=== PATIENT | female | born 1975 | race Caucasian/White ===

== ENCOUNTER → 2016-12-05 | Outpatient (CLI) | payer BC ==
[~2016-12-05] MED LIST: ATOR-24 PO; B-COTAB18 PO; BUTA1CAP17 PO; CHOL1TAB46 PO; COEN100C7 PO; LEVO75TA5 PO; ONDA4TAB65 PO; OXYC-57 PO; PROM25TA9 PO; RIZA10TA19 PO; SYN25 PO; TPM/50 PO
== END | disposition home or self-care (01) ==
LOC: C.PAPS 13:47
PROVIDERS: ATTEND Obstetrics & Gynecology
DX: Z01.419 Encounter for gynecological examination (general) (routine) without abnormal findings (principal)

== ENCOUNTER 2017-07-07 06:03 | Observation (INO) | payer BC ==
[2017-06-11 09:25] VITALS: BMI 33.0
[2017-06-18 09:33] LABS: BASO % 0.2 %; BASO ABS # 0.02 K/uL (0-0.2); COMPLETE YES; EOS % 2.4 %; HEMATOCRIT 41.1 % (37-47); IG% 0.2 %; LYMPH % 35.7 %; LYMPH ABS # 3.27 K/uL (1.2-3.4); MEAN CORPUSCULAR HEMOGLOBIN 28.1 pg (25-34); MEAN CORPUSCULAR HGB CONC 34.3 g/dl (32-36); MEAN PLATELET VOLUME 9.2 fL (7.4-10.4); NEUT % 54.5 %; PLATELET COUNT 386 K/uL (130-400); RED BLOOD COUNT 5.01 M/uL (4.2-5.4); WHITE BLOOD COUNT 9.17 K/uL (4.8-10.8)
[2017-06-18 09:54] LABS: BUN/CREATININE RATIO 19.2 (10-20); CALCIUM 8.8 mg/dl (8.5-10.1); CREATININE 0.96 mg/dl (0.60-1.20); POTASSIUM 4.1 mmol/L (3.5-5.1)
[2017-06-18 10:05] LABS: CHOLESTEROL/HDL RATIO 4.2; THYROID STIMULATING HORMONE 2.43 uIu/ml (0.300-4.500)
[2017-07-07] VITALS (7 sets, daily range): BP systolic 104–165; BP diastolic 62–90; PULSE 64–83; TEMP 36.5–37.3; O2SAT 94–97; Ht 149.9 cm; Wt 75.0 kg
[~2017-07-07] VITALS: Ht 149.9 cm; Wt 75.0 kg
[~2017-07-07 06:03] MED LIST changes: +CLINDAMYCIN 600 MG/54 ML D5W 50 ML IV SCH; +LACTATED RINGER'S 1000ML 1,000 ML IV SCH; -SYN25 PO
[2017-07-07] MEDS ORDERED: EpHEDrine SULFATE INJ 50 MG/ML AMP IV PRN (06:30)
[2017-07-07] MEDS ORDERED: FENTANYL CITRATE INJ 50 MCG/1 ML 2 ML VIAL IV PRN (06:30)
[2017-07-07] MEDS ORDERED: PROMETHAZINE HCL INJ 12.5 MG in SODIUM CHLORIDE 0.9% 50ML 50 ML IV PRN (06:30)
[2017-07-07] MEDS ORDERED: ATROPINE SULFATE 0.1 MG/ML 5ML SYR IV PRN (06:30)
[2017-07-07] MEDS ORDERED: HYDROmorphone INJ 1 MG/ML SYR IV PRN (06:30)
[2017-07-07] MEDS ORDERED: ONDANSETRON INJ 2 MG/ML 2 ML VIAL IV PRN (06:30)
[2017-07-07] MEDS ORDERED: MIDAZOLAM HCL 1 MG/ML 2ML VIAL ONE (06:50)
[2017-07-07] MEDS ORDERED: FENTANYL CITRATE INJ 50 MCG/1 ML 2 ML VIAL ONE (06:51)
[2017-07-07] MEDS ORDERED: BUPIVACAINE 0.5 % 5 MG/1 ML MPF 30ML VIAL ONE (07:02)
[2017-07-07 07:04] LABS: PREG INTERNAL NEGATIVE QC NEG CLEAR BACKGROUND; PREG INTERNAL POSITIVE QC POS CONTROL LINE
[2017-07-07] MEDS: GENTAMICIN INJ 80 MG in DEXTROSE 5% 100ML 100 ML IV SCH ×2 (07:13→09:13)
--- NOTE | 2017-07-07 07:19 | History & Physical Bridge Note ---
H&P Re-Evaluation Bridge Note: I have examined the patient, reviewed the History & Physical and in the interval since the performance of the History & Physical I have noted the following changes of clinical significance: No changes noted
[2017-07-07] MEDS ORDERED: SCOPOLAMINE 1.5 MG TDSY TD ONE (07:26)
[2017-07-07] MEDS ORDERED: HYDROmorphone INJ 2 MG/ML SYR/VIAL ONE (07:52)
[2017-07-07] MEDS ORDERED: ROCURONIUM BROMIDE 10 MG/ML 5 ML VIAL ONE (08:16)
[2017-07-07] MEDS ORDERED: GLYCOPYRROLATE INJ 0.2 MG/ML VIAL ONE (08:16)
[2017-07-07] MEDS ORDERED: PROPOFOL IV EMULSION 10 MG/ML 20 ML VIAL IV ONE (08:16)
[2017-07-07] MEDS ORDERED: NEOSTIGMINE METHYLSULFATE 5 MG/5 ML SYR ONE (08:16)
[2017-07-07] MEDS ORDERED: LIDOCAINE HCL 2% 2 ML VIAL (20MG/ML) ONE (08:16)
[2017-07-07] MEDS ORDERED: ONDANSETRON INJ 2 MG/ML 2 ML VIAL ONE (08:16)
[2017-07-07] MEDS ORDERED: DEXAMETHASONE SOD INJ 4 MG/ML VIAL ONE (08:16)
[2017-07-07] MEDS ORDERED: METOCLOPRAMIDE HCL INJ 5 MG/ML 2 ML VIAL ONE (08:16)
[2017-07-07] MEDS ORDERED: TISSEEL FIBRIN SEALANT 4ML TOP ONE (08:44)
[2017-07-07] MEDS ORDERED: OXYC-57 PO (09:29)
[2017-07-07] MEDS ORDERED: SIMETHICONE 80 MG CHEW PO PRN (09:30)
[2017-07-07] MEDS ORDERED: ACETAMINOPHEN 325 MG TAB PO PRN (09:30)
[2017-07-07] MEDS ORDERED: IBUPROFEN 600 MG TAB PO PRN (09:30)
[2017-07-07] MEDS ORDERED: KETOROLAC TROMETHAMINE 30 MG/ML VIAL IV. PRN (09:30)
[2017-07-07] MEDS ORDERED: OXYCODONE/ACETAMINOPHEN 5-325 TAB PO PRN ×2 (09:30)
[2017-07-07] MEDS ORDERED: MEPERIDINE HCL 50 MG/ML CARP IV PRN ×2 (09:30)
--- NOTE | 2017-07-07 09:30 | Discharge Instructions ---
Discharge Instructions Date of Service Jul 07, 2017. Admission Reason for Admission: Dysmenorrhea;Z01.818;E78.5, I10, E03.9 Discharge Discharge Diagnosis / Problem: s/p total laproscopic hysterectomy and removal of the tubes Discharge Goals Goal(s): Routine recovery after surgery Activity Recommendations Activity Limitations: per Instructions/Follow-up section . Instructions / Follow-Up Instructions / Follow-Up POST OPERATIVE: BOWEL FUNCTION/MEDICATIONS: 1. Constipation pain and discomfort are the most common complaints 5-7 days after surgery. Points 2-6 address the things that can help. 2. Chewing gum can help stimulate the gut and help improve digestion and motility. 3. Milk of Magnesia 1-2 times per day until return of bowel function. 4. Colace is a stool softener that helps. Taking this 2-3 times per day until bowel function returns to normal is highly recommended. 5. Dulcolax is a laxative that may be used if several days have passed without a bowel movement. Alternatively Miralax may be used daily instead. 6. Drink plenty of fluids as this will also reduce constipation. 7. Narcotic pain medications will be prescribed by your physician. They are safe to use and we encourage you to use them. If you are not allergic, ibuprofen will also be prescribed. Many patients will be able to transition off of the narcotic medications to ibuprofen by postoperative day 3. ACTIVITY RECOMMENDATIONS: 1. Get plenty of rest and listen to your body. If you are tired, take a nap. 2. You may shower, but do not take a tub bath until you see your doctor at the 2 week post operative visit. 3. Absolutely NO intercourse and nothing in the vagina until you are examined by your doctor at the 6 week visit. At that visit it will be determined when such activities can be resumed. This can range from 6-12 weeks after your surgery depending on healing time. 4. The main physical activity in the first week should be walking. By the second week you can slowly increase activity. There are no limits on walking up and down stairs. 5. Do not lift more than 5-10 lbs for 4 weeks. Remember the "one-handed rule", i.e. if you can lift something with only one hand it's likely okay. 6. Minimize anode adjuster like vacuuming and exercising for 4 weeks. "Overdoing it" can lead to incisions not healing, pain and vaginal bleeding , so again, listen to your body. 7. Driving can be resumed when you feel able. Do not drive within 24 hours of taking a narcotic medication. EXPECTATIONS: 1. Vaginal spotting, bleeding and discharge are common after surgery. There may even be an odor to the discharge which is often related to sutures used in the vagina. If you experience heavy vaginal bleeding, call the office number day or night [phone]. 2. Bladder discomfort is common after surgery from the catheter. This usually resolves in 1-2 weeks. 3. By the end of the 3rd or 4th week you should be feeling much better. It may take up to 6 weeks for your energy levels to return to normal. 4. Narcotic medications have side effects such as: dizziness, headache, nausea and/or vomiting. If you suspect your pain medication is causing problems, call our office and we may be able to prescribe an alternate medication. 5. The skin incisions are often covered with a liquid bandage. This will gradually peel off over time. CALL THE OFFICE IF YOU HAVE ANY OF THE FOLLOWIN. Temperature of 101 degrees or higher. 2. Severe abdominal or pelvic pain not relieved by pain medication. 3. Persistent nausea or vomiting. 4. Increased pain with urination or difficulty urinating. 5. Bright red bleeding that soaks more than 1 pad per hour. CONTACT PHONE NUMBERS: Main Office: [phone] Surgical Nurse: [phone] extension [phone] FOLLOW-UP: Post-Operative Appointments: * Individual instructions will have been given about the timing of your first examination, but this is usually at the end of the second week home. * You will need to call the office at soon after discharge to make the appointment for your post-op check-up if it has not already been scheduled. * Additional information regarding activity, sexual intercourse and when to return to work will be given at this appointment. WE WISH YOU A SPEEDY RECOVERY! Current Hospital Diet Patient's current hospital diet: Discharge Diet Recommended Diet: Regular Diet Procedures Procedures Performed: Robotic assisted total laparoscopic hysterectomy with bilateral salpingectomies and cystoscopy Pending Studies Studies pending at discharge: no Laboratory Results Lipid Panel Test 06/18/17 08:11 Range/Units Triglycerides Level 212 H 0-150 mg/dl Cholesterol Level 207 H 0-200 mg/dl HDL Cholesterol 49 mg/dl Cholesterol/HDL Ratio 4.2 LDL Cholesterol, Calculated 116 mg/dl Medical Emergencies . Who to Call and When: Medical Emergencies: If at any time you feel your situation is an emergency, please call 911 immediately. . Non-Emergent Contact Non-Emergency issues call your: Community Recreation Coordinator . . "Provider Documentation" section prepared by Ana Holden. . VTE Core Measure Inpt VTE Proph given/why not?: Treatment not indicated [place] Drug Monitoring Program Search Results: patient reviewed within database, no issues identified
--- NOTE | 2017-07-07 09:32 | [facility] Post Operative Brief Note ---
Immediate Operative Summary Operative Date Jul 07, 2017. Pre-Operative Diagnosis Dysmenorrhea Failed endometrial ablation Post-Operative Diagnosis same Procedure(s) Performed Robotic assisted total laparoscopic hysterectomy with bilateral salpingectomies and cystoscopy Surgeon Dr. Ana Holden MD Dealmaker Surgeon(s) None Estimated Blood Loss 50ml Findings uterus normal size and shape, nl tubes and ovaries noted. Fluids (cc crystalloids) 1000cc Specimens A. Uterus, cervix, and bilateral fallopian tubes Drains bourne Anesthesia gett Complication(s) None Disposition Recovery Room / PACU
--- NOTE | 2017-07-07 09:34 | Medical Student: [facility] ---
Operative Report Operative Date Jul 07, 2017. Pre-Operative Diagnosis 42 yr with Dysmenorrhea with failed endometrial ablation Post-Operative Diagnosis same as pre-op Procedure(s) Performed Total laproscopic hysterectomy with bilateral salpenjectomy and cystoscopy Surgeon Dr. Holden Gas Well Drilling Manager Surgeon(s) n/a Estimated Blood Loss 50mL Findings normal gross anatomy of uterus, fallopian tubes x2, ovaries x2, small anterior mid-abdominal omental adhesion Specimens non-gravid uterus with cervix, 2 fallopian tube segments Drains Samson Anesthesia General tracheal Complication(s) None Disposition Recovery Room / PACU
[2017-07-07] MEDS ORDERED: LACTATED RINGER'S 1000ML 1,000 ML IV SCH (10:00)
--- NOTE | 2017-07-07 10:02 | Anesthesiology Progress Note ---
Anesthesia Post Op Note Date & Time Jul 07, 2017 at 10:01 Vital Signs Pain Intensity: 0 Vital Signs Past 12 Hours Date Time Temp Pulse Resp B/P (MAP) Pulse Ox O2 Delivery O2 Flow Rate FiO2 07/07/17 09:55 56 16 110/69 98 Nasal Cannula 2 07/07/17 09:45 61 16 106/65 98 Nasal Cannula 2 07/07/17 09:35 63 16 90/63 99 Oxymask 10 07/07/17 09:29 36.8 69 16 110/58 96 Oxymask 10 07/07/17 06:48 36.8 79 16 165/90 (115) 97 Room Air Notes Mental Status: alert / awake / arousable, participated in evaluation Pt Amnestic to Procedure: Yes Nausea / Vomiting: adequately controlled Pain: adequately controlled Airway Patency, RR, SpO2: stable & adequate BP & HR: stable & adequate Hydration State: stable & adequate Anesthetic Complications: no major complications apparent Doing well. No n/v. Migraines gone. Ready for d/c from PACU.
[2017-07-07] MEDS ORDERED: IV FLUIDS COMPLETED PRN (11:00)
--- NOTE | 2017-07-07 11:43 | Progress Note ---
Progress Note Date of Service Jul 07, 2017. Progress Note Patient notes she had a recent script for percocet filled in March for her migraines. She takes 1/2 tab and phenergan. she notes she has plenty of percocet remaining. Therefore, her script was disposed of so she may use the ones she has at home.
--- NOTE | 2017-07-07 12:31 | OPERATIVE REPORT ---
DATE OF OPERATION: 07/07/2017 PREOPERATIVE DIAGNOSES: 1. Dysmenorrhea. 2. Failed ablation. POSTOPERATIVE DIAGNOSES: Same. PROCEDURES: 1. Total laparoscopic hysterectomy with bilateral salpingectomies. 2. Cystoscopy. SURGEON: Dr. Holden. ASSIST: Nursing. ANESTHESIA: General per endotracheal tube. ESTIMATED BLOOD LOSS: 50 mL. FLUIDS: 1000 mL. URINE OUTPUT: 200 mL of yellow urine in the Samson catheter at the end of the procedure. INDICATIONS: Angela is a 2, para 1-0-1-1, status post section x1, who has significant dysmenorrhea with her periods. We attempted to treat this with endometrial ablation but this has failed and so she desires definitive surgical therapy. FINDINGS: Normal uterus, tubes, and ovaries were noted bilaterally. Uterus normal size and shape. COMPLICATIONS: None. DRAINS: Samson. DISPOSITION: To recovery room in stable condition. PROCEDURE IN DETAIL: The patient was taken to the operating room where she was identified verbally and by bracelet. She was placed in dorsal supine position where general anesthesia was induced without difficulty. She was then placed in Yellofin stirrups. Her arms were carefully padded and tucked at her sides. Her chest was protected. The heading and priming operator was placed. The patient was prepped and draped in normal sterile fashion. Timeout was held, identifying correct patient, procedure and preoperative antibiotic. Attention was turned to the perineum, where a Samson catheter was placed. A weighted speculum was placed in the posterior vagina. The anterior lip of the cervix was grasped with a single tooth tenaculum. The uterus sounded to 6-7 cm and was dilated to a #21 Hegar dilator. The VCare uterine manipulator was placed into the uterus and was attached to the cervix using 1 stitch at 9 o'clock of 0 Vicryl. Gloves were then changed and attention was then turned to the abdomen where a supraumbilical incision was made with a knife. This was opened with a snap. A Veress needle was placed through this. Opening pressure was 3 mmHg. The abdomen was insufflated with 3 liters of carbon dioxide gas. A 12-mm optical trocar was placed through this incision and direct intraabdominal placement was confirmed visually. The patient was then placed into Trendelenburg and bilateral right and left lower quadrant 8 mm da Loy trocars were placed under direct visualization and a left upper quadrant 10 mm trocar was placed as an insurance underwriting assistant port. The da Loy dental assistant medical assistant device was connected to the patient and the film process operator proceeded to the console. There was an omental adhesion to the anterior abdominal wall that was taken down using sharp scissors and cautery. This was noted to be hemostatic. Then first on the right and then on the left, the tubes were excised from the specimen and headed out through the accessory port. Then the tubo-ovarian ligament and round ligaments were cauterized and cut. The bladder flap was created anteriorly and the bladder was pushed down atraumatically. The uterine arteries on both sides were then cauterized and cut. Once the bladder was down and the uterine arteries were cauterized, a colpotomy incision was made in 365 degrees with hot roby until the specimen was removed from the vagina and then was totally removed through the uterus. 2-0 V-Loc suture was then used to close the cuff. Attention was then turned to cystoscopy where 70-degree scope was entered into urethra after the Samson catheter had been removed. The bladder dome was noted to be intact without stitches. The ureteral orifices were both visualized and found to be effluxing blue urine. Cystoscopy was discontinued and a new clean Samson catheter was placed. Attention then was returned to the abdomen where Tisseel was placed over the vaginal cuff. Hemostasis was noted to be excellent. The da Loy dental assistant medical assistant device was then removed from the patient. The gas was released from the abdomen. The trocars were removed and the supraumbilical incision, a deep stitch of 0 Vicryl was placed and then all incisions were closed with 4-0 Vicryl. 0.5% Marcaine was used in each of the incisions to help with postoperative pain. The procedure was thus terminated. All sponge, lap and needle counts were correct x2. The patient tolerated the procedure well and was taken to the recovery room in stable condition. I attest to the content of the Intraoperative Record and any orders documented therein. Any exception s are noted below.
[2017-07-07] MEDS ORDERED: DOCUSATE SODIUM 100 MG CAP PO SCH (21:00)
--- NOTE | 2017-07-09 16:41 | DISCHARGE SUMMARY ---
ADMIT DIAGNOSES: Dysmenorrhea and failed ablation. DISCHARGE DIAGNOSES: Same. PROCEDURE: Total laparoscopic hysterectomy with bilateral salpingectomy and cystoscopy. HISTORY OF PRESENT ILLNESS: The patient is a 42-year-old white female, 2, para 1-0-1-1 with a history of section x1 who had an ablation for menorrhagia in 2011. Over the last 2 years, she has had increased bleeding and significant cramping both before and with her bleeding. This has not been responsive to nonsteroidal anti-inflammatories and she is ready to proceed with definitive therapy in terms of hysterectomy. For the rest of the patient's detailed history and physical, please see her dictated history and physical. ASSESSMENT: The patient is a 42-year-old 2, para 1 who presents for total laparoscopic hysterectomy. HOSPITAL COURSE: The patient was admitted and underwent a total laparoscopic hysterectomy, bilateral salpingectomy and cystoscopy without issue. ESTIMATED BLOOD LOSS: 50 mL. Finding at the time of surgery revealed normal uterus, tubes, and ovaries bilaterally. There were some small adhesions of the omentum to the anterior abdominal wall, but no other abnormalities found. Postoperatively, the patient did well. She voided after the removal of her Samson catheter. She tolerated diet. She remained afebrile. She ambulated without difficulty. Her pain was well controlled on oral pain medications and she was discharged home the same day of surgery.
== END 2017-07-07 18:15 | disposition home or self-care (01) ==
LOC: C.ACU 06:03 → C.MS4N 09:28 → ENRESERV 10:09
PROVIDERS: ADMIT Obstetrics & Gynecology; ATTEND Obstetrics & Gynecology
DX: N94.6 Dysmenorrhea, unspecified (principal); E78.5 Hyperlipidemia, unspecified; I10 Essential (primary) hypertension; E03.9 Hypothyroidism, unspecified; Z85.3 Personal history of malignant neoplasm of breast; Z80.51 Family history of malignant neoplasm of kidney; E78.00 Pure hypercholesterolemia, unspecified
CPT/HCPCS: 58571; S2900

== ENCOUNTER → 2017-07-21 | Outpatient (CLI) | payer BC ==
[~2017-07-21] MED LIST changes: -CLINDAMYCIN 600 MG/54 ML D5W 50 ML IV SCH; -LACTATED RINGER'S 1000ML 1,000 ML IV SCH
[2017-07-21 17:03] LABS: URINE APPEARANCE CLEAR (CLEAR); URINE BILIRUBIN NEG (NEG); URINE COLOR YELLOW; URINE EPITHELIAL CELL AUTO 0-5 /lpf (0-5); URINE NITRITE NEG (NEG); URINE SPECIFIC GRAVITY 1.004 (1.000-1.030); UROBILINOGEN NEG (NEG); ZZUR CULT IF INDIC CLEAN CATCH NO
[2017-07-21 17:08] LABS: MANUAL MICROSCOPIC REQUIRED? NO; REVIEW REQ? NO
== END | disposition home or self-care (01) ==
LOC: C.LAB 15:26
PROVIDERS: ATTEND Obstetrics & Gynecology
DX: N32.89 Other specified disorders of bladder (principal)

== ENCOUNTER → 2018-06-29 | Outpatient (CLI) | payer OTHER | END | disposition home or self-care (01) | LOC: C.LAB 10:14 | PROVIDERS: ATTEND Physician Assistant | DX: Z13.220 Encounter for screening for lipoid disorders (principal); Z13.6 Encounter for screening for cardiovascular disorders; Z13.1 Encounter for screening for diabetes mellitus ==

== ENCOUNTER 2019-02-10 05:54 | Observation (INO) ==
--- NOTE | 2019-02-04 08:32 | PAT Medication Instructions ---
Medication Instructions Date of Service February 04, 2019 Home Medications atorvastatin 40 mg PO QPM wiwtfwbnii-vuvnxegpvlfae-fxfd 1 cap PO Q6H PRN cholecalciferol (vitamin D3) 5,000 units PO Q2D levothyroxine 75 mcg PO QAM ondansetron HCl 4 mg PO DIRECTED PRN oxycodone-acetaminophen 1 - 2 tabs PO Q6H PRN promethazine 25 mg PO Q6H PRN sertraline 50 mg PO QAM propranolol 60 mg PO HS zolmitriptan [Zomig] 1 dose PO UD PRN DO NOT take the morning of surgery lwzodqomzh-ynvsiirqfunxn-rgqj 1 cap PO Q6H PRN cholecalciferol (vitamin D3) 5,000 units PO Q2D Take morning of surgery With a small sip of water, OTHERWISE NOTHING TO EAT OR DRINK AFTER MIDNIGHT: levothyroxine 75 mcg PO QAM ondansetron HCl 4 mg PO DIRECTED PRN (if needed) oxycodone-acetaminophen 1 - 2 tabs PO Q6H PRN (if needed, may be taken up to four hours before surgery) promethazine 25 mg PO Q6H PRN (if needed) sertraline 50 mg PO QAM zolmitriptan [Zomig] 1 dose PO UD PRN (if needed) Take evening before surgery atorvastatin 40 mg PO QPM guenqwlbtk-tgmymammwfhwx-mchm 1 cap PO Q6H PRN (if needed) ondansetron HCl 4 mg PO DIRECTED PRN (if needed) oxycodone-acetaminophen 1 - 2 tabs PO Q6H PRN (if needed) promethazine 25 mg PO Q6H PRN (if needed) propranolol 60 mg PO HS zolmitriptan [Zomig] 1 dose PO UD PRN (if needed) Other Notes If you have any questions please call us at [phone] or [phone] or [phone] or [phone]
--- NOTE | 2019-02-04 09:41 | Anesthesiology Consultation ---
Date of Service February 04, 2019 Assessment & Plan (1) Encounter for pre-operative examination: Chart Review Chart Review: Acceptable Risk for Surgery and Patient seen in Pre Admission Testing Teaching & Discussion Instructed NPO after midnight before surgery, except medications with 15 cc of water. Medication instructions provided according to the PAT guidelines. History Surgery Operation Date: 02/10/19 07:30 Proposed Procedures s First Stage Bilateral Immediate Breast Reconstruction with Tissue Ingot Stripper and Acellular Dermal Matrix- Dr. Mirza (2nd Procedure) - Mayr Mirza MD p Bilateral Breast Mastectomy- Dr. Hanks (1st Procedure) - Checo Hanks MD, FACS Height/Weight Height: 4 ft 11.5 in Weight: 80.3 kg Allergies Allergy/AdvReac Type Severity Reaction Status Date / Time erythromycin base Allergy Unknown rash Verified 02/03/19 10:22 Penicillins Allergy Unknown rash Verified 02/03/19 10:22 Cephalosporins AdvReac Severe severe GI Verified 02/03/19 10:22 upset, nausea / vomitting/ diarrhea Medications Home Medications Medication Instructions Recorded Confirmed Last Taken atorvastatin 40 mg PO QPM 11/23/18 02/03/19 02/02/19 phlheclkba-ojykmbmvzvfrm-grhe 1 cap PO Q6H PRN 11/23/18 02/03/19 Unknown cholecalciferol (vitamin D3) 5,000 units PO Q2D 11/23/18 02/03/19 Unknown [Vitamin D3] levothyroxine 75 mcg PO QAM 11/23/18 02/03/19 02/03/19 ondansetron HCl 4 mg PO DIRECTED PRN 11/23/18 02/03/19 Unknown oxycodone-acetaminophen 1 - 2 tabs PO Q6H PRN 11/23/18 02/03/19 Unknown promethazine 25 mg PO Q6H PRN 11/23/18 02/03/19 Unknown sertraline 50 mg PO QAM 11/23/18 02/03/19 02/03/19 propranolol 60 mg PO HS 02/03/19 02/03/19 02/02/19 zolmitriptan [Zomig] 1 dose PO UD PRN 02/03/19 02/03/19 Unknown Past Medical History Medical History Hypertension (Chronic) High cholesterol History of kidney stones Hypothyroid Liver hemangioma X2 Migraine Nausea and vomiting after administration of anesthetic agent SCOPE PATCH EFFECTIVE IN PAST Sleep apnea CPAP Past Family History Family History Other Breast cancer Diabetes Hypertension Past Surgical History Surgical History H/O: hysterectomy (Resolved) History of bilateral breast reduction surgery History of section Past Anesthesia History No Family Hx of Anesthesia Complications and Other PONV RELIEVED WITH SCOPE PATCH. [address] [facility]: GRADE VIEW I, MAC 3, ETT 7.0, DVL X 1. SMOOTH IV INDUCTION/INTUBATION. History of PONV Yes Motion Sickness Screening History of Motion Sickness: Yes Social History Smoking Status: Never smoker Do You Dip or Chew Tobacco: No Hx Alcohol Use: Yes Alcohol type: wine alcohol intake frequency: 0-2 drinks per day Hx Substance Use: No substance use type: does not use Exercise / Class Metabolic Activity II 4-5 Yardwork/Stairs/Walk up hill (Denies CP and SOB with stairs) Review of Systems Pt denies any recent chest pain, shortness of breath, palpitations, cough, fever or URI. Physical Exam Vital Signs BP: 112/76 P: 68bpm SPO2: 96% RA T: 98.4 F R: 16 ENMT Mouth: no dental restorations, no chipped teeth and no loose teeth Thyromental Distance: > or= 3.5 Finger Breadths (3.5) Mallampati Class: II Neck normal visual inspection; neck extension not limited Respiratory normal respiratory effort Auscultation: lungs clear to auscultation bilaterally Cardiovascular Rate/Rhythm: regular rate and regular rhythm Heart Sounds: no murmur Testing Electrocardiogram Date: 02/04/19 Findings: + NSR @ (68) Laboratory Results 02/04/19 09:50 02/04/19 09:50 PT 10.4 Seconds (9.0-12.0) 02/04/19 09:50 INR 1.0 (0.9-1.1) 02/04/19 09:50 APTT 28.3 Seconds (21.0-31.0) 03 09:50
[2019-02-04 11:00] LABS: Basophils # (auto) 0.03 K/uL (0-0.2); Basophils % (auto) 0.4 %; Eosinophils # (auto) 0.14 K/uL (0-0.5); Eosinophils % (auto) 1.7 %; Hematocrit (blood only) 39.8 % (37-47); Hemoglobin 13.2 g/dL (12.0-16.0); Immature Granulocytes # (auto) 0.02 K/uL (0.00-0.02); Immature Granulocytes % (auto) 0.2 %; Lymphocytes % (auto) 32.3 %; Mean Corpuscular Hgb Conc 33.2 g/dL (32-36); Mean Corpuscular Volume 84.1 fL (80-100); Mean Platelet Volume 9.3 fL (7.4-10.4); Neutrophils # (auto) 4.96 K/uL (1.4-6.5); Neutrophils % (auto) 59.4 %; Platelet Count 321 K/uL (130-400); RDW Coefficient of Variation 13.5 % (11.5-14.5); RDW Standard Deviation 41.5 fL (36.4-46.3); Red Blood Count 4.73 M/uL (4.2-5.4); White Blood Count 8.35 K/uL (4.8-10.8)
[2019-02-04 11:08] LABS: Calcium 8.2 mg/dl (8.5-10.1); Creatinine Clr Calc Pharmacy 65.8 ml/min; Est GFR (African American) 79.2; Est GFR (Non-African American) 68.3; Potassium 3.7 mmol/L (3.5-5.1)
[2019-02-04 11:16] LABS: Partial Thromboplastin Time 28.3 Seconds (21.0-31.0); Prothrombin Time 10.4 Seconds (9.0-12.0)
[2019-02-10] MEDS ORDERED: CLINDAMYCIN 600 MG/54 ML BAG IV SCH (06:00)
[2019-02-10] MEDS ORDERED: LR 500ML BOLUS, THEN 15ML/HR IV SCH (06:00)
[2019-02-10] MEDS ORDERED: SCOPOLAMINE 1.5 MG TDSY TD SCH (06:00)
--- NOTE | 2019-02-10 06:46 | History & Physical Bridge Note ---
Date of Service February 10, 2019 History & Physical Bridge Note I have examined the patient, reviewed the History & Physical and in the interval since the performance of the History & Physical I have noted the following changes of clinical significance: no changes noted
[2019-02-10] MEDS ORDERED: BUPIVACAINE 0.25% 30 ML VIAL ONE (06:55)
[2019-02-10] MEDS ORDERED: BUPIVACAINE 0.5 % 5 MG/1 ML MPF 30ML VIAL ONE (06:55)
[2019-02-10] MEDS ORDERED: GENTAMICIN SULFATE 40 MG/ML 2 ML VIAL ONE ×2 (06:55→10:51)
[2019-02-10] MEDS ORDERED: LIDOCAINE/EPINEPHRINE 1% 20 ML VIAL ONE (06:55)
[2019-02-10] MEDS ORDERED: CEFAZOLIN 250 MG/ML 1 GM VIAL ONE ×2 (06:56→10:51)
[2019-02-10] MEDS ORDERED: BACITRACIN INJ 50,000 UNIT VIAL ONE ×2 (06:56→10:51)
[2019-02-10] MEDS ORDERED: METHYLENE BLUE 0.5% 10 ML VIAL ONE (06:56)
[2019-02-10] MEDS ORDERED: MIDAZOLAM HCL 1 MG/ML 2ML VIAL ONE (07:21)
[2019-02-10] MEDS ORDERED: DEXAMETHASONE SOD INJ 4 MG/ML VIAL ONE (07:21)
[2019-02-10] MEDS ORDERED: ONDANSETRON INJ 2 MG/ML 2 ML VIAL ONE (07:21)
[2019-02-10] MEDS ORDERED: LIDOCAINE HCL 2% 2 ML VIAL/AMP(20MG/ML) INFIL ONE (07:21)
[2019-02-10] MEDS ORDERED: PROPOFOL IV EMULSION 10 MG/ML 20 ML VIAL IV ONE ×3 (07:21→11:49)
[2019-02-10] MEDS ORDERED: fentaNYL citrate 100 MCG/2 ML VIAL ONE ×3 (07:22→11:11)
[2019-02-10] MEDS ORDERED: ONDANSETRON INJ 2 MG/ML 2 ML VIAL IV PRN ×3 (07:45→14:58)
[2019-02-10] MEDS ORDERED: HYDROmorphone INJ 1 MG/ML SYRINGE IV PRN ×2 (07:45→13:53)
[2019-02-10] MEDS ORDERED: PROMETHAZINE HCL 12.5 MG in SODIUM CHLORIDE 0.9% 50 ML IV PRN ×2 (07:45→14:58)
[2019-02-10] MEDS ORDERED: ePHEDrine sulfate 50 MG/ML AMP IV PRN ×2 (07:45→13:54)
[2019-02-10] MEDS ORDERED: ATROPINE SULFATE 0.1 MG/ML 10ML SYR IV PRN ×2 (07:45→13:51)
[2019-02-10] MEDS ORDERED: fentaNYL citrate 100 MCG/2 ML VIAL IV PRN ×2 (07:45→13:53)
[2019-02-10] MEDS ORDERED: GLYCOPYRROLATE 0.2 MG/ML VIAL ONE (09:32)
--- NOTE | 2019-02-10 09:45 | Operative Report ---
Post Operative Report Pre & Post Diagnosis Operation Date: 02/10/19 07:45 Pre-Op Diagnosis: Increased Risk of Breast Cancer Post-Op Diagnosis: Increased Risk of Breast Cancer Procedure Operation Date: 02/10/19 07:45 Actual Procedures s First Stage Bilateral Immediate Breast Reconstruction with Tissue Chlorine Cell Tender and Acellular Dermal Matrix- Dr. Mirza (2nd Procedure) - Mary Mirza MD p Bilateral Breast Mastectomy- Dr. Hanks (1st Procedure) - Checo Hanks MD, FACS Surgeon Checo Hanks MD, FACS Book Shelver Nasra Lion Estimated Blood Loss 20 Findings Consistent with Post-Op Diagnosis Specimens bilateral breast tissue Description of Procedure see dictation of mastectomies I attest to the content of the Intraoperative Record and any orders documented therein. Any exceptions are noted below.
--- NOTE | 2019-02-10 11:33 | Operative Report ---
DATE OF OPERATION: 02/10/2019 NAME OF OPERATION: Bilateral mastectomy. PREOPERATIVE DIAGNOSIS: Strong family history of breast cancer. POSTOPERATIVE DIAGNOSIS: Strong family history of breast cancer. STAFF SURGEON: Checo Hanks MD MANUFACTURING PROCESS ENGINEER: Evan Lion PA-C ANESTHESIA: General. DESCRIPTION OF PROCEDURE: The patient was brought in the operating room and placed on the operating table in supine position. Pneumatic stockings, orogastric tube were placed. Her chest and axilla bilaterally were prepped and draped in usual fashion using Betadine. Dr. Mirza had marked the patient for skin sparing mastectomy on both sides and then immediate reconstruction. The left side was approached first. Elliptical incision was made around the nipple areolar complex from medial to lateral, creating an ellipse and then dissecting the breast tissue away from the subcutaneous tissue superiorly, laterally, medially and inferiorly. The patient had prior breast reduction surgery and there was some scar tissue. The breast tissue was then dissected away from the pectoralis major muscle. The left breast was then marked with a long silk suture laterally. The wound was irrigated and moist sponges placed. The right side was then approached similar fashion. Both sides had the skin and subcutaneous tissue anesthetized using 0.5% plain Marcaine. On the right side, elliptical incision was again made from medial to lateral around the nipple areolar complex, excising the breast tissue, dissecting away from the subcutaneous tissue down to the pectoralis major muscle and then dissecting the breast tissue away from the pectoralis muscle. The breast tissue on the right side was marked with a long silk suture laterally. The wound was irrigated and then moist packs placed. Dr. Mirza then came into the room to proceed with her portion of the operation. My fiscal assistant helped with excision of the breast tissue. I attest to the content of the Intraoperative Record and any orders documented therein. Any exception s are noted below.
[2019-02-10] MEDS ORDERED: ePHEDrine sulfate 50 MG/ML SYR ONE (11:58)
--- NOTE | 2019-02-10 12:44 | Post Operative Brief Note ---
Immediate Post Op Note v1 Date of Surgery February 10, 2019 Pre & Post Diagnosis Operation Date: 02/10/19 07:45 Pre-Op Diagnosis: Increased Risk of Breast Cancer Post-Op Diagnosis: Increased Risk of Breast Cancer Procedure Operation Date: 02/10/19 07:45 Actual Procedures s First Stage Bilateral Immediate Breast Reconstruction with Tissue Fluorescent Solution Mixer and Acellular Dermal Matrix- Dr. Mirza (2nd Procedure)(Bilateral) - Mary Mirza MD p Bilateral Breast Mastectomy- Dr. Hanks (1st Procedure)(Bilateral) - Checo Hanks MD, FACS Surgeon Mary Mirza MD Primary Class Teacher Nasra Lion Estimated Blood Loss 20 Findings Consistent with Post-Op Diagnosis Drains Eulogio-Scott Drain
--- NOTE | 2019-02-10 13:07 | Operative Report ---
Post Operative Report Pre & Post Diagnosis Operation Date: 02/10/19 07:45 Pre-Op Diagnosis: Increased Risk of Breast Cancer Post-Op Diagnosis: Increased Risk of Breast Cancer Procedure Operation Date: 02/10/19 07:45 Actual Procedures s First Stage Bilateral Immediate Breast Reconstruction with Tissue Sugarcane Research Technician and Acellular Dermal Matrix- Dr. Mirza (2nd Procedure)(Bilateral) - Mary Mirza MD p Bilateral Breast Mastectomy- Dr. Hanks (1st Procedure)(Bilateral) - Checo Hanks MD, FACS Surgeon Mary Mirza MD Child Psychology Teacher [place] Estimated Blood Loss 20 Findings Consistent with Post-Op Diagnosis Specimens breast tissue to pathology Drains KARRIE x2 Anesthesia Type General Complications none Indications s/p bilateral prophylactic mastectomy, desiring reconstruction Description of Procedure After completion of the mastectomies by Dr. Hanks, new drapes were placed an a time out procedure was performed. I began with the left side. Hemostasis was achieved with electrocautery. Pectoralis major muscle was then identified and elevated. Inferior attachments of pectoralis major muscle were divided along the ribs medially to the sternum. None of the sternal attachments were dissected. The retropectoral plane was then developed using electrocautery. Hemostasis was achieved using cautery. Once adequate dissection had been performed, I then chose a piece of 12x16 thick AlloDerm which was then used to create a sling for the lower pole. This was first sutured to the inframammary fold using 2-0 Vicryl U stitches. Pocket was then measured and base diameter was 14 cm. Therefore, I selected a 14 cm Allergan style 133 MVT tissue conference services manager with fill volume of 500 mL. The conference services manager was prepared and air was aspirated out. The conference services manager was soaked in antibiotic irrigation and antibiotic irrigation was used to irrigate the pocket. All instruments were wiped down and gloves were changed. Sugarcane Research Technician was placed along the inframammary fold as medially as possible. Suture tabs were sutured down to underlying periosteum using a 2-0 Vicryl suture. The remainder of the conference services manager was then enclosed using 2-0 Vicryl running suture to reapproximate the AlloDerm which had been trimmed to size and this was approximated to the pectoralis major muscle. Laterally, this was closed down using 2-0 Vicryl interrupted sutures as well. A 15-[place] drain was placed in the wound and brought out through a separate stab incision. Prior to reapproximating the wound the fill port was identified using the magnifinder and accessed using 22-gauge needle. A total of 400 mL were placed prior to closure. Wound was reapproximated using 2-0 Vicryl deep dermal suture, 3-0 PDS superficial dermal suture and 3-0 Monocryl running subcuticular suture. Drain was sutured in place using 3-0 nylon. Dermabond was applied. An identical procedure was performed on the right side. At the close of the case, both mastectomies had viable appearing flaps. The drain site was dressed using Acticoat dry dressing and Tegaderm. Dry dressings were placed over the incision. Procedure was tolerated well. Kaitlyn Munroe PA-C was present and scrubbed throughout the entire procedure and was instrumental in providing exposure during elevation of pectoralis muscle and suturing of the AlloDerm as well as filling expanders and assisting in wound closure. I attest to the content of the Intraoperative Record and any orders documented therein. Any exceptions are noted below.
[2019-02-10] MEDS ORDERED: ACETAMINOPHEN 1,000 MG/100 ML VIAL IV ONE (13:34)
[2019-02-10] MEDS ORDERED: ACETAMINOPHEN 1000 MG/100 ML IV IV ONE (13:35)
--- NOTE | 2019-02-10 14:25 | Anesthesiology Progress Note ---
Date of Service February 10, 2019 Anesthesia Post Procedure Vital Signs Vital Signs: Temp Pulse Pulse Resp BP Pulse Ox 02/10/19 14:15 36.8 C 71 14 127/86 96 02/10/19 14:05 69 14 132/81 96 02/10/19 13:55 69 14 136/78 94 02/10/19 13:45 69 14 137/72 98 02/10/19 13:35 75 14 132/76 98 02/10/19 13:25 37.0 C 72 12 101/82 96 02/10/19 06:43 36.5 C 64 18 127/87 96 Notes Mental Status: alert / awake / arousable and participated in evaluation Patient Amnestic to Procedure: Yes Nausea / Vomiting: adequately controlled Pain: adequately controlled Airway Patency, RR, SpO2: stable & adequate BP & HR: stable & adequate Hydration State: stable & adequate Anesthetic Complications: no major complications apparent and Pt Satisfied with anesthetic care
[2019-02-10] MEDS ORDERED: MoRPHine SULFATE 4 MG/ML 1 ML CARP\\VIAL IV PRN (14:58)
[2019-02-10] MEDS ORDERED: OXAZEPAM 10 MG CAPSULE PO PRN (14:58)
[2019-02-10] MEDS ORDERED: BUTALBITAL/ACETAMIN/CAFFEINE TAB PO PRN (14:58)
[2019-02-10] MEDS ORDERED: ONDANSETRON 4 MG TAB PO PRN (14:58)
[2019-02-10] MEDS ORDERED: ACETAMINOPHEN 325 MG TAB PO PRN (14:58)
[2019-02-10] MEDS ORDERED: DiphenhydrAMINE HCL 50 MG/ML VIAL IV PRN (14:58)
[2019-02-10] MEDS ORDERED: PROMETHAZINE HCL 25 MG TAB PO PRN (14:58)
[2019-02-10] MEDS ORDERED: MoRPHine SULFATE 10 MG/ML CARP/VIAL IV PRN (14:58)
[2019-02-10] MEDS ORDERED: MoRPHine SULFATE 2 MG/ML CARP IV PRN (14:58)
[2019-02-10] MEDS: [UNRECOGNIZED DRUG - REMARK] SCH ×2 (15:01→15:24)
[2019-02-10] MEDS: CHECK SCOPOLAMINE PATCH PLACEMENT SCH ×3 (15:02→23:38)
[2019-02-10] MEDS: OXYCODONE/ACETAMINOPHEN 5mg/325mg TAB PO PRN ×3 (15:41→20:32)
[2019-02-10] MEDS ORDERED: CHOLECALCIFEROL 1,000 UNITS TAB PO SCH (16:00)
[2019-02-10] MEDS: D5W AND 1/2NSS + 20MEQ KCL 20 MEQ/1,000 ML BAG IV SCH (16:23)
[2019-02-10] MEDS: CLINDAMYCIN 600 MG in DEXTROSE 5% 50 ML IV SCH ×2 (16:23→23:36)
[2019-02-10] MEDS ORDERED: ATORVASTATIN 40 MG TAB PO SCH (21:00)
[2019-02-10] MEDS ORDERED: PROPRANOLOL HCL 60 MG LA CAP PO SCH (21:00)
[2019-02-11] MEDS: OXYCODONE/ACETAMINOPHEN 5mg/325mg TAB PO PRN ×3 (02:28→10:26)
[2019-02-11] MEDS: D5W AND 1/2NSS + 20MEQ KCL 20 MEQ/1,000 ML BAG IV SCH (03:45)
--- NOTE | 2019-02-11 05:58 | Progress Note ---
Date of Service February 11, 2019 Assessment & Plan (1) S/P bilateral mastectomy: doing well- cont supportive care possible d/c later today after check by Dr Mirza's team has f/u appt in my office Subjective awake, alert, some mild pain last pm controlled with Percocet Drain output expected- Physical Exam Vital Signs (Past 24 Hours): Last Vital Signs Temp 37.1 C 02/11/19 02:42 Pulse 62 02/11/19 02:42 Resp 16 02/11/19 02:42 BP 109/73 02/11/19 02:42 Pulse Ox 95 02/11/19 02:42 dressings intact- no acute chgs
[2019-02-11] MEDS ORDERED: LEVOTHYROXINE SODIUM 75 MCG TABLET PO SCH (06:30)
[2019-02-11 07:14] VITALS: BP 94/63; PULSE 61; TEMP 98.1; O2SAT 92
[2019-02-11] MEDS: CLINDAMYCIN 600 MG in DEXTROSE 5% 50 ML IV SCH (08:19)
--- NOTE | 2019-02-11 08:21 | Anesthesiology Progress Note ---
Date of Service February 11, 2019 Anesthesia Post Procedure Vital Signs Vital Signs: Temp Pulse Pulse Resp BP Pulse Ox 02/11/19 07:11 36.7 C 61 18 94/63 L 92 02/11/19 02:42 37.1 C 62 16 109/73 95 02/10/19 22:59 36.9 C 64 20 100/67 91 02/10/19 20:31 73 124/80 02/10/19 18:47 36.4 C L 74 18 139/82 98 02/10/19 16:29 36.7 C 74 16 114/77 94 02/10/19 15:42 69 16 132/85 96 02/10/19 15:09 36.4 C L 66 18 128/77 96 02/10/19 14:30 36.6 C 73 16 134/81 94 02/10/19 14:15 36.8 C 71 14 127/86 96 02/10/19 14:05 69 14 132/81 96 02/10/19 13:55 69 14 136/78 94 02/10/19 13:45 69 14 137/72 98 02/10/19 13:35 75 14 132/76 98 02/10/19 13:25 37.0 C 72 12 101/82 96 Pain Intensity Bilateral Breast: Pain Intensity: 4 Notes Mental Status: alert / awake / arousable and participated in evaluation Nausea / Vomiting: adequately controlled Pain: adequately controlled Airway Patency, RR, SpO2: stable & adequate BP & HR: stable & adequate Hydration State: stable & adequate Anesthetic Complications: Pt Satisfied with anesthetic care
[2019-02-11] MEDS ORDERED: SERTRALINE HCL 50 MG TABLET PO SCH (09:00)
[2019-02-11] MEDS ORDERED: MULTIVITAMIN TAB PO SCH (09:00)
--- NOTE | 2019-02-11 09:09 | Surgery Progress Note ---
Date of Service February 11, 2019 Assessment & Plan (1) S/P bilateral mastectomy: (2) Encounter for breast reconstruction following mastectomy: Patient feeling well POD#1 s/p bilateral mastectomy with immediate reconstruction. Drains re-dressed with acticoat and tegaderm. Patient d/c home today with office follow-up tomorrow. Subjective Patient resting comfortably and has excellent pin control. She has ambualted in hallways. Physical Exam Vital Signs (Past 24 Hours): Last Vital Signs Temp 36.7 C 02/11/19 07:11 Pulse 61 02/11/19 07:11 Resp 18 02/11/19 07:11 BP 94/63 L 02/11/19 07:11 Pulse Ox 92 02/11/19 07:11 Constitutional: WD/WN, vitals as above no acute distress Skin: + incision (CDI, no evidence of infection. drains with appriopiate outpu t)
--- NOTE | 2019-02-11 15:27 | Discharge Summary ---
Date of Service February 11, 2019 Admission HPI Per Admitting Provider see admission H&P Admission Exam Per Admitting Provider see admission H&P Principal Diagnosis family history of breast cancer, increased risk of breast cancer Discharge Exam Constitutional WD/WN, vitals as above no acute distress Skin + incision (CDI, no evidence of infection. drains with appriopiate output) Discharge Data Allergies Allergy/AdvReac Type Severity Reaction Status Date / Time erythromycin base Allergy Unknown rash Verified 02/10/19 06:24 Penicillins Allergy Unknown rash Verified 02/10/19 06:24 Cephalosporins AdvReac Severe severe GI Verified 02/10/19 06:24 upset, nausea / vomitting/ diarrhea Procedures Performed Operation Date: 02/10/19 07:45 Actual Procedures s First Stage Bilateral Immediate Breast Reconstruction with Tissue Electric Blanket Wirer and Acellular Dermal Matrix- Dr. Mirza (2nd Procedure)(Bilateral) - Mary Mirza MD p Bilateral Breast Mastectomy- Dr. Hanks (1st Procedure)(Bilateral) - Cheoc Hanks MD, FACS Hospital Course Patient presented to [facility] with history of increased risk of breast cancer. She was taken to the OR an underwent bilateral mastectomy by Dr. Hanks, and immediate first stage breast reconstruction using tissue expanders and acellular dermal matrix. There were no intraoperative complications. On POD#1, the patient was feeling well and had good pain control. She was ambulating and tolerated a regular diet. On exam, her vital signs were stable and incision clean, dry and intact. Patient was discharged home. Total Time Total Time Spent Total Time Spent (In Minutes): 10 Total Time Includes: Examination of the Patient and Discharge Planning Discharge Plan Discharge Items Patient Disposition: Home - Self-Care Reason For Visit: Increased Risk of Breast Cancer, Encounter for Kamla Discharge Diagnosis: s/p bilateral mastectomy with immediate reconstruction Discharge Goals: Decrease discomfort Activity: As commented below Non-emergency contact: Surgeon Call non-emergency contact if: you have any medication questions, your pain is not controlled, you have a fever and your wound has increased redness Follow-up/Referrals: Krysten Ortiz PA-C [Primary Care Provider] - Diet: Regular Addtl Provider Instructions: * call Dr Hanks's office for followup in 2-3 weeks [phone] ACTIVITY RECOMMENDATIONS: __Normal activities _x_No bending, lifting or straining _x_No driving until discussed in office __Driving allowed when you are off pain medications _x_Walking permitted __You should have help at home for ___ days DRESSINGS: __No dressings required _x_Keep dressings dry/in place until first office visit __Remove dressings ___ and leave dressings off __Apply ice ___ days __Remove dressings and reapply garment __Apply antibiotic ointment (Bacitracin, Neosporin, etc) to wounds 3-4 times/day for 10 days BATHING: _x_Keep dressings dry _x_Sponge bathing permitted away from incision area __Showering permitted _x_No swimming, hot tubs or soaking in a tub MEDICATIONS: Resume previous medications unless instructed otherwise by your surgeon. _x_Do not use aspirin, Motrin, Advil or Ibuprofen as these may promote bleeding. Please use Tylenol. _x_Prescription(s) provided: pain medication and antibiotics were prescrbed at your last office visit. start antibiotics today OTHER INSTRUCTIONS: _x_Record drain output 2-3 times per day. drains are ready to be removed with output is less than 10cc/24 hours x 2 days SPECIAL CARE INSTRUCTIONS: * It is normal to have a mild fever after surgery. If your temperature is higher than 101.5 degrees F, please call the office at [phone]. * Constipation is a typical side effect of pain medication. An dyig-avc-wynlpsm stool softener will help relieve this. * Leaking around surgical drains may occur and should not cause concern. Sometimes these drains become clogged. If this happens, remove the bulb and milk the clot out of the tube, then replace the bulb. * Drainage from wounds after liposuction is normal and should be expected. Garments will become soiled. You should protect furniture and bedding. This drainage should mostly subside within 2-3 days. Leave garments in place unless instructed to remove them. * If you have unusual drainage from a wound or are concerned you have an infection or have any questions or concerns, please call the office at [phone]. FOLLOW UP VISIT: If not already scheduled, please call the office, , when you return home after surgery to schedule an appointment to be seen in __1_ days. Prescriptions: Continued atorvastatin 40 mg tablet 40 mg PO QPM RF: 0 ondansetron HCl 4 mg tablet 4 mg PO DIRECTED PRN (Reason: Nausea) RF: 0 levothyroxine 75 mcg tablet 75 mcg PO QAM RF: 0 oxycodone-acetaminophen 5-325 mg tablet 1 - 2 tabs PO Q6H PRN (Reason: Migraine Headache) RF: 0 promethazine 25 mg tablet 25 mg PO Q6H PRN (Reason: Nausea) RF: 0 sertraline 50 mg tablet 50 mg PO QAM RF: 0 turwmmnlda-sovrjetvrjoak-fgxx 50-325-40 mg Capsule 1 cap PO Q6H PRN (Reason: Migraine Headache) RF: 0 cholecalciferol (vitamin D3) [Vitamin D3] 5,000 unit Tablet 5,000 units PO Q2D RF: 0 propranolol 60 mg Capsule,Extended Release 24 Hr 60 mg PO HS RF: 0 Stand-Alone Forms: [employer], [employer]/Other Patient Handouts: Mastectomy W Reconstruction Discharge Orders: Discharge Order (Routine); Ordered 02/11/19 Ordered By: Kaitlyn Munroe Admission Data Admit Date/Time: 02/10/19 13:27 Attending Provider: Mary Mirza Admit Provider: Mary Mirza Primary Care Provider: Krysten Ortiz Service: Surgical Services Other Interventions: Discharge Summary Assessment (RN) Last Done: 02/11/19 09:42 Pending Studies at Discharge: Yes Studies:: pathology DC Date/Time DO NOT enter until pt leaves facility: 02/11/19 10:45
== END 2019-02-11 10:45 | disposition home or self-care (01) ==
LOC: ASU 05:54 → 3E 05:54